=== PATIENT | male | born 1990 | race Caucasian/White ===

== ENCOUNTER → 2021-03-10 08:09 | Outpatient (CLI) | payer BC, SELFPAY ==
--- NOTE | ~2021-03-10 | CT_ITS ---
EXAMINATION: CT abdomen pelvis w con INDICATION: Diverticulitis, left lower quadrant pain TECHNIQUE: Computed tomographic images of the abdomen and pelvis were obtained after the administrati on of 100 cc of Omnipaque 350 intravenous contrast. The dose-length product (DLP) was 344.69 mGy-cm. Automated exposure control and iterative reconstruction technique were employed. COMPARISON: None available FINDINGS: The lung bases are clear. The heart size is normal. The liver, spleen, pancreas, gallbladde r, and adrenal glands are normal. There is mild hydronephrosis of the right kidney continuing to the level of the ureteropelvic junction. The left kidney is unremarkable. No pathologically enlarged abdo dm or pelvic lymph nodes are identified. There is no free intraperitoneal gas or evidence of bowel obstruction. Colonic diverticulosis is present without evidence of diverticulitis. IMPRESSION: 1. Diverticulosis without evidence of diverticulitis. 2. Possible right ureteropelvic junction stricture resulting in mild right hydronephrosis. Reviewed, dictated and finalized at location A. [employer] IMPRESSION: 1. Diverticulosis without evidence of diverticulitis. 2. Possible right ureteropelvic junction stricture resulting in mild right hydr onephrosis.
== END ==
PROVIDERS: PCP Physician Assistant Medical; Visit Provider Physician Assistant Medical
DX: K57.90 Diverticulosis of intestine, part unspecified, without perforation or abscess without bleeding (principal)
CPT/HCPCS: 74177; Q9967